=== PATIENT | female | born 1945 | race Caucasian/White ===

== ENCOUNTER 2019-02-16 14:33 | Emergency (ER) | payer MEDICARE, OTHER ==
[2019-02-16 15:44] LABS: BASOPHIL % 0.2 % (0.0-0.4); Basophil (Absolute #) 0.01 (0-0.4); Eosinophil % 3.9 % (0.00-5.0); Eosinophil (Absolute #) 0.21 (0-0.5); Granulocyte Absolute (ANC) 3.41 (1.4-6.9); Granulocytes % 63.8 % (36.0-66.0); Hematocrit 44.1 % (35-47); Hemoglobin 14.5 gm/dl (12.0-16.0); Lymphocyte (Absolute #) 1.22 (1.0-4.6); Lymphocytes % 22.8 % (24.0-44.0); Mean Cell Volume 94.6 fl (78-100); Mean Corpuscular Hemoglobin 31.1 pg (26-32); Mean Corpuscular Hgb Concent. 32.9 g/dl (32-36); Mean Platelet Volume 12.2 fl (6-9.5); Monocytes % 9.3 % (0.0-12.0); Platelet Count 155 K/mm3 (150-450); Red Blood Count 4.66 M/mm3 (4.1-5.4); Red Cell Distribution Width 13.4 % (11.5-14.0); White Blood Count 5.4 K/mm3 (4.0-10.5)
[2019-02-16 15:49] LABS: ALBUMIN 4.4 g/dL (3.5-5.0); ALKALINE PHOSPHATASE 69 U/L (38-126); AMYLASE 75 U/L (30-110); ANION GAP 14.2 MEQ/L (5-15); BLOOD UREA NITROGEN 19 mg/dL (7-17); CHLORIDE 101 mmol/L (98-107); Calcium 10.4 mg/dL (8.4-10.2); Carbon Dioxide 26 mmol/L (22-30); Creatinine 1 0.83 mg/dL (0.52-1.04); Glucose 100 mg/dL (74-106); LIPASE 142 U/L (23-300); SGOT/AST 29 U/L (14-36); SGPT/ALT 21 U/L (0-35); SODIUM 137 mmol/L (137-145); Total Protein 7.4 g/dL (6.3-8.2)
--- NOTE | 2019-02-16 15:51 | ERPHSYRPT ---
- History of Present Illness Time Seen by Provider: 02/16/19 15:41 Historian: patient Exam Limitations: no limitations Patient Subjective Stated Complaint: states began having sharp left chest pain this am. denies any vomiting or diaphoresis. denies any cardiac history. states she has been having some nausea recently and has gone off her thyroid med and nexium. Triage Nursing Assessment: ambulated to room per self. skin w/d, color normal, resp nonlabored. states pain is not worse with deep breathing. Physician History: 73-year-old white female with history of cataracts, hypothyroidism, high blood pressure, arthritis, anxiety, depression. Arrives with complaint of pain in her chest which began on her left side of her chest radiating to her sternal region she states were sharp shooting lasting seconds in duration but were intermittent. She states she's continued throughout the day until she arrived here. She states she has no pain at this time she does state she's been nauseous she has no shortness of breath. She does state that she recently stopped her Nexium she does state she has been having some reflux. She also states she has stopped her thyroid meds. Past medical history includes cataracts, hypothyroidism, high blood pressure, arthritis, anxiety, depression. Past surgical history includes hysterectomy, orthopedic surgery, bilateral shoulder surgery. Social history patient denies tobacco alcohol or illicit drug use. Timing/Duration: today (nnoon today) Activities at Onset: none Quality: sharpness, other (sharp shooting pains seconds in duration) Location: other (pain started on left lateral chest and radiated to sternum) Severity of Pain-Max: moderate Severity of Pain-Current: none Modifying Factors: Improves With: other (patient states she recently stopped her Nexium) Associated Symptoms: nausea, No vomiting, No palpitations, No heartburn, No abdominal pain, No shortness of breath, No cough, No hurts to breathe, No diaphoresis, No chills, No fever, No fatigue, No weakness, No swelling/lump in chest, No syncope, No rash, No headache, No dizziness, No edema, No back pain Prior Chest Pain/Cardiac Workup: no prior chest pain Nitro Today/Relief: no nitro taken today Aspirin Treatment Today: 81 mg x 4 Allergies/Adverse Reactions: amoxicillin Adverse Reaction (Verified 02/16/19 15:46) cefdinir Adverse Reaction (Verified 02/16/19 15:46) ciprofloxacin [From Cipro] Adverse Reaction (Verified 02/16/19 15:12) doxycycline Adverse Reaction (Verified 02/16/19 15:46) erythromycin base Adverse Reaction (Verified 02/16/19 15:03) sulfamethoxazole [From Bactrim] Adverse Reaction (Verified 02/16/19 15:46) trimethoprim [From Bactrim] Adverse Reaction (Verified 02/16/19 15:46) Home Medications: Albuterol Common Canister [Proventil Common Canister] 1 puff IH DAILY 03/29 [History] Alprazolam 0.5 mg [xanAX 0.5 MG] 0.5 mg PO BID 02/16/19 [History] Bisoprolol/Hydrochlorothiazide [Bisoprolol-Hctz 2.5-6.25 mg Tb] 2.5 mg PO DAILY 02/16/19 [History] Hx Tetanus, Diphtheria Vaccination/Date Given: No Hx Influenza Vaccination/Date Given: Yes Hx Pneumococcal Vaccination/Date Given: Yes - Review of Systems Constitutional: No Fever, No Chills Eyes: No Symptoms Ears, Nose, & Throat: No Symptoms Respiratory: No Cough, No Dyspnea Cardiac: Chest Pain, No Edema, No Palpitations, No Syncope, No Orthopnea Abdominal/Gastrointestinal: Nausea, No Abdominal Pain, No Vomiting, No Diarrhea , No Constipation, No Hematemesis, No Hematochezia, No Melena, No Dysphagia, No Appetite Changes Genitourinary Symptoms: No Dysuria Musculoskeletal: No Back Pain, No Neck Pain Skin: No Rash Neurological: No Dizziness, No Focal Weakness, No Sensory Changes Psychological: No Symptoms Endocrine: No Symptoms All Other Systems: Reviewed and Negative - Past Medical History Neurological History: No Pertinent History ENT History: Cataracts Cardiac History: Hypertension Endocrine Medical History: Hypothyroidism Musculoskeletal History: Arthritis Psycho-Social History: Anxiety, Depression - Past Surgical History Past Surgical History: Yes Musculoskeletal: Orthopedic Surgery Female Surgical History: Hysterectomy Other Surgical History: bilat shoulder surgery - Social History Smoking Status: Never smoker Exposure to second hand smoke: No Drug Use: none Patient Lives Alone: No - Nursing Vital Signs Nursing Vital Signs: Initial Vital Signs Temperature 97.6 F 02/16/19 14:52 Pulse Rate 81 02/16/19 14:52 Respiratory Rate 16 02/16/19 14:52 Blood Pressure 164/73 02/16/19 14:52 O2 Sat by Pulse Oximetry 100 02/16/19 14:52 Pain Scale Pain Intensity 0 - Physical Exam General Appearance: no apparent distress, alert Eye Exam: PERRL/EOMI, eyes nml inspection Ears, Nose, Throat Exam: normal ENT inspection, moist mucous membranes Neck Exam: normal inspection, non-tender, supple, full range of motion Respiratory Exam: normal breath sounds, lungs clear, No respiratory distress Cardiovascular Exam: regular rate/rhythm, normal heart sounds, capillary refill <2 sec Gastrointestinal/Abdomen Exam: soft, No tenderness, No mass Back Exam: normal inspection, No CVA tenderness, No vertebral tenderness Extremity Exam: normal inspection, normal range of motion Neurologic Exam: alert, oriented x 3, cooperative, 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, normal mood/affect, sensation nml, No motor deficits Skin Exam: normal color, warm, dry SpO2 Interpretation: normal (98%) SpO2: 98 - Course Nursing assessment & vital signs reviewed: Yes EKG Interpreted by Me: RATE (76 bpm), NORMAL AXIS, Other (EKG: Sinus rhythm, 76 beats per minute, normal axis, no acute ST or T wave changes) - Radiology Exams Chest X-ray Interpretation: Interpreted by me (no acute disease process not a 1-year- olded) Ordered Tests: Active Orders 24 hr Category Date Time Status 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 Care 02/16/19 15:14 Active EKG-ER Only STAT Care 02/16/19 15:14 Active IV Insertion STAT Care 02/16/19 15:14 Active Pulse Oximetry (ED) STAT Care 02/16/19 15:14 Active CHEST 1 VIEW (PORTABLE) Stat Exams 02/16/19 15:14 Taken AMYLASE Stat Lab 02/16/19 15:20 Completed CBC W DIFF Stat Lab 02/16/19 15:20 Completed CMP Stat Lab 02/16/19 15:20 Completed D-DIMER QUANTITATION Stat Lab 02/16/19 15:20 Completed LIPASE Stat Lab 02/16/19 15:20 Completed PROTIME WITH INR Stat Lab 02/16/19 15:20 Completed PTT Stat Lab 02/16/19 15:20 Completed TROPONIN Q3H Lab 02/16/19 15:00 Completed TROPONIN Q3H Lab 02/16/19 18:05 Completed TROPONIN Q3H Lab 02/16/19 21:15 Ordered TROPONIN Q3H Lab 02/17/19 00:15 Ordered TROPONIN Q3H Lab 02/17/19 03:15 Ordered Medication Summary Discontinued Medications Generic Name Dose Route Start Last Admin Trade Name Raymundoq PRN Reason Stop Dose Admin Aspirin 162 mg 02/16/19 17:58 02/16/19 18:03 Baby Aspirin 81 Mg Chew PO 02/16/19 17:59 162 mg STAT ONE Administration Aspirin Confirm 02/16/19 18:01 Baby Aspirin 81 Mg Chew Administered 02/16/19 18:02 Dose 162 mg .ROUTE .MEDOVENTK-Double Fusion ONE Famotidine 20 mg 02/16/19 17:59 02/16/19 18:03 Pepcid 20 Mg Vial IV 02/16/19 18:00 20 mg STAT ONE Administration Famotidine Confirm 02/16/19 18:01 Pepcid 20 Mg Vial Administered 02/16/19 18:02 Dose 20 mg IV .Spotigo-Double Fusion ONE Lab/Rad Data: Laboratory Result Diagrams 02/16/19 15:20 02/16/19 15:20 Laboratory Results 02/16/19 02/16/19 02/16/19 Range/Units 18:05 15:20 15:20 WBC (4.0-10.5) K/mm3 RBC (4.1-5.4) M/mm3 Hgb (12.0-16.0) gm/dl Hct (35-47) % MCV (78-100) fl MCH (26-32) pg MCHC (32-36) g/dl RDW (11.5-14.0) % Plt Count (150-450) K/mm3 MPV (6-9.5) fl Gran % (36.0-66.0) % Eos # (Auto) (0-0.5) Absolute Lymphs (auto) (1.0-4.6) Absolute Monos (auto) (0.0-1.3) Lymphocytes % (24.0-44.0) % Monocytes % (0.0-12.0) % Eosinophils % (0.00-5.0) % Basophils % (0.0-0.4) % Absolute Granulocytes (1.4-6.9) Basophils # (0-0.4) PT 12.0 (9.95-12.35) SECONDS INR 1.06 (0.8-3.0) APTT 31.1 (25.3-37.0) SECONDS D-Dimer 447 (215-500) ng/mL Sodium 137 (137-145) mmol/L Potassium 4.0 (3.5-5.1) mmol/L Chloride 101 (98-107) mmol/L Carbon Dioxide 26 (22-30) mmol/L Anion Gap 14.2 (5-15) MEQ/L BUN 19 H (7-17) mg/dL Creatinine 0.83 (0.52-1.04) mg/dL Estimated GFR > 60.0 ML/MIN Glucose 100 (74-106) mg/dL Calcium 10.4 H (8.4-10.2) mg/dL Total Bilirubin 0.90 (0.2-1.3) mg/dL AST 29 (14-36) U/L ALT 21 (0-35) U/L Alkaline Phosphatase 69 (38-126) U/L Troponin I < 0.012 (0.000-0.034) ng/mL Serum Total Protein 7.4 (6.3-8.2) g/dL Albumin 4.4 (3.5-5.0) g/dL Amylase 75 (30-110) U/L Lipase 142 (23-300) U/L 02/16/19 02/16/19 Range/Units 15:20 15:00 WBC 5.4 (4.0-10.5) K/mm3 RBC 4.66 (4.1-5.4) M/mm3 Hgb 14.5 (12.0-16.0) gm/dl Hct 44.1 (35-47) % MCV 94.6 (78-100) fl MCH 31.1 (26-32) pg MCHC 32.9 (32-36) g/dl RDW 13.4 (11.5-14.0) % Plt Count 155 (150-450) K/mm3 MPV 12.2 H (6-9.5) fl Gran % 63.8 (36.0-66.0) % Eos # (Auto) 0.21 (0-0.5) Absolute Lymphs (auto) 1.22 (1.0-4.6) Absolute Monos (auto) 0.50 (0.0-1.3) Lymphocytes % 22.8 L (24.0-44.0) % Monocytes % 9.3 (0.0-12.0) % Eosinophils % 3.9 (0.00-5.0) % Basophils % 0.2 (0.0-0.4) % Absolute Granulocytes 3.41 (1.4-6.9) Basophils # 0.01 (0-0.4) PT (9.95-12.35) SECONDS INR (0.8-3.0) APTT (25.3-37.0) SECONDS D-Dimer (215-500) ng/mL Sodium (137-145) mmol/L Potassium (3.5-5.1) mmol/L Chloride (98-107) mmol/L Carbon Dioxide (22-30) mmol/L Anion Gap (5-15) MEQ/L BUN (7-17) mg/dL Creatinine (0.52-1.04) mg/dL Estimated GFR ML/MIN Glucose (74-106) mg/dL Calcium (8.4-10.2) mg/dL Total Bilirubin (0.2-1.3) mg/dL AST (14-36) U/L ALT (0-35) U/L Alkaline Phosphatase (38-126) U/L Troponin I < 0.012 (0.000-0.034) ng/mL Serum Total Protein (6.3-8.2) g/dL Albumin (3.5-5.0) g/dL Amylase (30-110) U/L Lipase (23-300) U/L - Progress Progress: improved Air Movement: fair Progress Note: 02/16/19 18:56 Patient feeling better after receiving Pepcid 20 mg and aspirin 162 mg orally Patient's troponin within normal limits x2 Chest x-ray no acute disease process noted EKG sinus rhythm 76 beats per minute normal axis no acute ST or T wave changes noted chemistry essentially normal CBC essentially normal Will discharge patient Diagnosis chest pain GERD Patient states she will take Tagamet at home until she discusses taking Nexium further with her family . She has been advised to return home rest and followup with her family . - Departure Departure Disposition: Home Clinical Impression: Chest pain Qualifiers: Chest pain type: unspecified Qualified Code(s): R07.9 - Chest pain, unspecified GERD (gastroesophageal reflux disease) Qualifiers: Esophagitis presence: esophagitis presence not specified Qualified Code(s): K21.9 - Gastro-esophageal reflux disease without esophagitis Condition: Fair Critical Care Time: No Referrals: [facility] [Primary Care Provider] - Additional Instructions: Return home, rest. Followup with your family Dr.. White as prescribed by your family or as directed. Return for acute distress severe symptoms or for any problems.
[2019-02-16 16:02] LABS: INR 1.06 (0.8-3.0)
[2019-02-16 16:05] LABS: PTT 31.1 SECONDS (25.3-37.0)
[2019-02-16] MEDS ORDERED: BABY ASPIRIN 81 MG CHEW PO ONE (17:58)
[2019-02-16] MEDS ORDERED: Pepcid 20 MG VIAL IV ONE ×2 (17:59→18:01)
[2019-02-16] MEDS ORDERED: BABY ASPIRIN 81 MG CHEW ONE (18:01)
[2019-02-16 18:52] VITALS: BP 138/86; PULSE 74
[2019-02-16 18:58] VITALS: O2SAT 98
--- NOTE | 2019-02-16 21:59 | XRAY ---
Indication: Chest pain. Comparison: None Portable chest demonstrates normal heart and lungs with incidental right hilar calcified nodes. Bony thorax intact with mild osteopenia and degenerative changes. Impression: Nonacute chest with chronic features.
== END 2019-02-16 19:23 | disposition home or self-care (01) ==
LOC: ED 14:33
DX: R07.9 Chest pain, unspecified (principal); K21.9 Gastro-esophageal reflux disease without esophagitis; I10 Essential (primary) hypertension; E03.9 Hypothyroidism, unspecified; F41.9 Anxiety disorder, unspecified; F32.9 Major depressive disorder, single episode, unspecified; Z79.899 Other long term (current) drug therapy
CPT/HCPCS: 36000; 36415; 71045; 80053; 82150; 83690; 84484; 85025; 85379; 85610; 85730; 93005; 93041; 94760; 96374; 99284; A9270-GY